=== PATIENT | female | born 1960 | race Hispanic/Latino ===

== ENCOUNTER 2018-10-16 18:10 | Emergency (ER) | payer OTHER, SELFPAY ==
[2018-10-16 18:12] VITALS: BP 126/78; PULSE 84; RESP 16; TEMP 36.3; O2SAT 99; BMI 29.2
--- NOTE | 2018-10-16 18:51 | RAD_ITS ---
STUDY: X-RAY - RIGHT WRIST REASON FOR EXAM: Female, 58 years old. Fell and injured right wrist TECHNIQUE: 3 view(s) of the wrist were obtained. COMPARISON: None. FINDINGS: Normal visualized distal radius and ulna. Normal radiocarpal articulation. Normal distal radioulnar articulation. Normal carpal bones. Normal carpal articulations. Normal carpometacarpal articulation of the thumb. Normal second through fifth carpometacarpal articulations. Normal visualized metacarpal bones. The soft tissue structures are unremarkable. RAD/Wrist min 3 Views IMPRESSION: Normal x-ray examination of the wrist. Electronically Signed: David Espinoza MD at 19:40 EDT , Service support ,
--- NOTE | 2018-10-16 18:54 | ED.DCSUM_ITS ---
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 She is presenting with wrist pain on the dorsum ulnar side of the right wrist she is right-handed. Physical Examination: She has full range of motion of the wrist, she has tenderness over the extensor wrist tendons on the ulnar side. No real bony tenderness. Emergency Department Course and Treatment: X-rays unremarkable patient will be discharged with a cockup splint to follow-up with employee health Disposition: Discharge stable condition Impression: Wrist tendinitis right This note was generated with TrumpIT dictation software. It may contain incorrect words, spelling, and punctuation that were not noted in review of the chart prior to signing
--- NOTE | 2018-10-16 21:42 | ED.DEP ---
ED Disposition - Plan for ED Patient: Disposition: Home or Assisted Living Instructions: ED Sprain Wrist Prescriptions: Naproxen [Naprosyn] 500 mg PO BID #20 tab Referrals: [facility] [GROUP OF PHYSICIANS] - 3-5 Days
--- NOTE | 2018-10-16 22:24 | ED.VISSUMM ---
- ER Visit Summary Date of Service: 10/16/18 Chief Complaint: [] History of Present Illness: The patient is a 58 F [] Physical Examination: [] Test Results: [] Emergency Department Course and Treatment: [] Treatment Plan: [] Disposition: [] Impression: [] This note was generated with Kofikafe dictation software. It may contain incorrect words, spelling, and punctuation that were not noted in review of the chart prior to signing ED Disposition - Plan for ED Patient: Disposition: Home or Assisted Living Instructions: ED Sprain Wrist Prescriptions: Meloxicam 15 mg PO BID #30 tab Naproxen [Naprosyn] 500 mg PO BID #20 tab Referrals: [facility] [GROUP OF PHYSICIANS] - 3-5 Days
[2018-10-16 22:26] VITALS: RESP 18; O2SAT 97
== END 2018-10-16 22:27 | disposition home or self-care (01) ==
PROVIDERS: Emergency Provider Emergency Medicine
DX: M77.9 Enthesopathy, unspecified (principal)
CPT/HCPCS: 73110; 99283

== ENCOUNTER 2018-12-09 18:30 | Outpatient (RCR) | payer OTHER, SELFPAY ==
[2018-11-06 17:15] VITALS: BMI 28.3
[2018-11-20 17:45] VITALS: BMI 28.3
--- NOTE | 2018-11-26 08:39 | HP.OTEVAL_ITS ---
Patient's Visit Information PETRA YOUNG is a 58 year old F, referred to Occupational Therapy by PAULO Ward, with a diagnosis of right wrist ruth ann. Date of Evaluation: 11/24/18 Occupational Therapist: Bonita Long, JANETTE/Loreta, CHT - Subjective Subjective: This 58 year old female was seen for initial OT eval following dx of a right wrist. Pt states the injury occured on October 16, 2018. 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 pt states she has been using the wrist brace and her pain is better. pt states she has not returned to her job at this time- is currently on light duty. 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 with IADLS and ADLS. Pt would benefit from skilled OT services 2-3 for 4 weeks to return pt to PLOF. Today pt was ed. through communication on decrease use of brace at home, ice and ROM. Therapist will cont with PRE on next visit, and work ergo. Rehabilitation Potential: Good - Anticipated Interventions Anticipated Interventions: A/AAROM/PROM, Strengthening, Triggerpoint Release, Modalities, Orthoses, Joint Protection/Energy Conservation, Ergonomic Education - Visit Plan Frequency: 2-3x /Week Duration: 4 Weeks TEXT: Thank you for the opportunity to evaluate your patient. For Medicare and Medicare HMO plans, please review the plan of care and approve it. It will need to be FAXED BACK to us at [phone] for Medicare purposes. Please let me know if there are questions or concerns regarding this plan of care. Physician Signature: Date:
--- NOTE | 2019-02-16 11:21 | HP.OT.NRP ---
HP - Discharge Summary - Patient Information PETRA YOUNG was seen in my office for initial evaluation on 11/24/18. The following Plan of Care was established for this patient: Initial Frequency: 2-3x /Week Initial Duration: 4 Weeks Plan: pt to bring in buckets from work to simulate work tasks. - Anticipated Interventions Anticipated Interventions: A/AAROM/PROM, Strengthening, Triggerpoint Release, Modalities, Orthoses, Joint Protection/Energy Conservation, Ergonomic Education This patient was last seen in our office 12/09/18. Pertinent comments regarding their Occupational therapy will appear below: pt was seen for 6/12 visits- she made great progress and completed work simulation tasks as well without pain. pt returned to and was released to full duty. pt d/c at this time. At this point I will be discontinuing this patient from occupational therapy. I would be happy to see this patient again in the future if found appropriate by the physician. Thank you! Bonita Long, OTR/L, CHT
== END 2018-12-09 19:00 | disposition home or self-care (01) ==
LOC: OT 18:30
PROVIDERS: Family Provider Physician Assistant; PCP Physician Assistant; Referring Provider Physician Assistant; Visit Provider Physician Assistant
DX: S63.501D Unspecified sprain of right wrist, subsequent encounter (principal)
CPT/HCPCS: 97035; 97110; 97166; 97530

== ENCOUNTER 2023-12-23 19:19 | Emergency (ER) | payer SELFPAY ==
[2023-12-23 19:23] VITALS: BP 132/78; PULSE 107; RESP 18; TEMP 36.6; O2SAT 94; BMI 28.0
--- NOTE | 2023-12-23 20:03 | CT_ITS ---
STUDY: CT ABDOMEN AND PELVIS WITH CONTRAST REASON FOR EXAM: Female, 63 years old. abdominal pain RADIATION DOSAGE (If Supplied By Facility): CTDIvol = ( 11.89 ) mGy, DLP = ( 712.47 ) mGycm TECHNIQUE: Transaxial images were obtained from the dome of the diaphragm to the symphysis pubis without oral contrast. IV 100mL Isovue-370 was administered. Sagittal and coronal images were reconstructed. Individualized dose optimization techniques were used for this CT. COMPARISON: None. FINDINGS: The visualized lung bases are unremarkable. The visualized portions of the heart are within normal limits. Normal liver. Normal gallbladder and extrahepatic biliary system. Normal spleen. Normal pancreas. Normal bilateral adrenal glands. Normal right kidney. Normal left kidney. Normal visualized stomach. Normal small intestine. Normal colon. The appendix is visualized and appears normal. Normal abdominal aorta. Normal inferior vena cava. Normal retroperitoneum. Normal urinary bladder. Normal abdominal wall. Normal osseous structures. CT/Abdomen/Pelvis W IV Cont ONLY IMPRESSION: Normal enhanced CT of the abdomen and pelvis. Electronically Signed: Obi Chavez MD at 22:25 EDT ,
--- NOTE | 2023-12-23 20:06 | EDS_ITS ---
HPI History of Present Illness Chief Complaint: Abd Pain Informant: patient and family Narrative Narrative: 63-year-old female presenting to the emergency room with upper abdominal pain and vomiting. Patient states that this afternoon around 1430 hrs. she ate some rice and beans and pork and a small amount of coconut. She mentions the coconut because several months ago while visiting the [facility] she had an episode of pain and nausea vomiting similar to this that ended up resolving which she attributed to the coconut. She states that today she went to urgent care because of the pain and vomiting and was sent to emergency. She states she had a subjective fever. Patient currently takes meloxicam. She denies any prior abdominal surgeries. No diarrhea. No rashes. She notes that the pain radiates to her back PFSH PFSH Home Medications ?Medication ?Instructions ?Recorded ?Last Taken ?Type omeprazole 20 mg capsule,delayed 20 mg PO BID #28 CAPSULES 12/23/23 Unknown Rx release ondansetron 4 mg disintegrating 4 mg PO Q6H PRN PRN Nausea #15 tabs 12/23/23 Unknown Rx tablet Allergy/AdvReac Type Severity Reaction Status Date / Time ibuprofen Allergy Other Verified 12/23/23 19:23 Social History Smoking Status: Never smoker alcohol intake: never ROS ROS ED Constitutional Constitutional ED: Reports fever(s) and subjective; Denies chills or weight loss Eyes Eyes: Denies change in vision or diplopia ENT ENT ED: Denies ear pain, rhinorrhea or sore throat Cardiovascular Cardiovascular: Denies chest pain, orthopnea, palpitations or racing heartbeat Respiratory/Chest Respiratory/Chest: Denies cough, dyspnea or orthopnea Gastrointestinal Gastrointestinal: Reports abdominal pain, nausea and vomiting; Denies diarrhea Genitourinary Genitourinary ED: Denies dysuria, hematuria or urinary frequency Musculoskeletal Musculoskeletal: Reports back pain; Denies arthralgias or myalgias Integumentary Denies abscess or rash Neurologic Neurologic: Denies headache(s) or weakness Psychiatric Psychiatric: Denies anxiety, depression, suicidal ideation or suicidal thoughts Endocrine Endocrinology: Denies polydipsia, polyphagia or polyuria Allergic/Immunologic Allergic/Immunologic ED: Denies mouth swelling, tongue swelling or urticaria EXAM Physical Exam Const Vital Signs: 12/23/23 19:23 12/23/23 21:21 12/23/23 23:00 Temperature 97.9 F Temperature Source Temporal Pulse Rate 107 H 77 72 Respiratory Rate 18 18 16 Blood Pressure 132/78 H 136/77 H 134/80 H Blood Pressure Mean 96 96 98 Pulse Ox 94 98 97 Oxygen Delivery Method Room Air Room Air Room Air 12/24/23 00:05 Temperature 98 F Temperature Source Pulse Rate 68 Respiratory Rate 16 Blood Pressure 144/79 H Blood Pressure Mean 100 Pulse Ox 99 Oxygen Delivery Method Positive well nourished and well developed General Appearance ED: well developed HEENT Reports normocephalic, head/scalp atraumatic and moist mucous membranes Eyes PERRL and EOMs intact bilaterally Neck no lymphadenopathy, supple and no JVD Resp normal respiratory effort and clear to auscultation bilaterally Cardio regular rate, regular rhythm and no murmurs Rate: tachycardic GI Inspection: Negative for abdominal distention Auscultation: normoactive bowel sounds Palpation: soft, tender epigastric and LUQ and guarding; Negative for rebound tenderness present Back/Spine no CVA tenderness and normal ROM Extremity normal to inspection General Extremety ED: Negative for edema General Extremity: Negative for edema Neuro oriented x3 and CN's II-XII intact bilaterally Sensorium / Orientation: alert Motor Exam: strength 5/5 throughout Psych mental status grossly normal Mood & Affect: Negative for depressed or tearful Skin no rashes or lesions noted and no wounds MDM MDM MDM Narrative Medical decision making narrative: I utilized primary care sales representative via an iPad. White count 3.3 hemoglobin 12.7. AST and ALT and alk phos are elevated. Normal bilirubin. Normal lipase. Urinalysis essentially negative. Patient received IV fluids Dilaudid and Zofran. Repeat examination finds the patient to be improved still with some slight nausea and she received oral ODT. CT of the abdomen pelvis was obtained. That was essentially negative and gallbladder ultrasound was also negative. I spoke with the patient and her [id number]. Patient now tells me that she does have a history of having some elevated liver enzymes and has not been determined why. She states that she was told when she was younger that she had hepatitis a 1 point. She does not drink any alcohol. No black or bloody stools. I will write for the patient have some omeprazole and some Zofran. Would have her avoid fatty foods which she states she does not eat. I like to have her follow-up with her primary care doctor. She can discuss a possible HIDA scan. No have a clear etiology for the patient's symptoms but I gave her explicit return instructions such as but not limited to fever worsening pain vomiting black or bloody stools. History & Record Review Discussion w/independent historian: Patient and Family Lab Data Attestation: I reviewed the patient's lab results. Labs: Laboratory Results - last 24 hr 12/23/23 12/23/23 20:20 23:10 WBC 3.3 L RBC 4.21 Hgb 12.7 Hct 39.5 MCV 93.8 MCH 30.2 MCHC 32.2 RDW Std Deviation 46.5 H RDW Coeff of Earline 13.7 Plt Count TNP MPV 12.2 H Immature Gran % (Auto) 0.600 Neut % (Auto) 89.3 H Lymph % (Auto) 3.7 L [place] % (Auto) 4.6 Eos % (Auto) 1.2 Baso % (Auto) 0.6 Absolute Neuts (auto) 2.9 Absolute Lymphs (auto) 0.12 L Nucleated RBC % 0 Platelet Estimate ADEQUATE Sodium 137 Potassium 4.2 Chloride 107 Carbon Dioxide 27.0 Anion Gap 3 L BUN 16 Creatinine 0.92 Estim Creat Clear Calc 54.14 Est GFR (MDRD) Af Amer 80 Est GFR (MDRD) Non-Af 66 BUN/Creatinine Ratio 17.4 Glucose 116 H Calcium 9.0 Total Bilirubin 0.70 Direct Bilirubin 0.16 AST 448 H ALT 266 H Alkaline Phosphatase 204 H Total Protein 8.0 Albumin 3.7 Globulin 4.3 H Lipase 34 Urine Color Yellow Urine Clarity Clear Urine pH 8.0 Ur Specific [place] 1.015 Urine Protein Negative Urine Glucose (UA) Normal Urine Ketones 5 H Urine Occult Blood Negative Urine Nitrite Negative Urine Bilirubin Negative Urine Urobilinogen Normal Ur Leukocyte Esterase Negative Radiography Diagnostic Testing: Clinical Impression(s) from Imaging Studies Abdomen/Pelvis CT 12/23/23 20:03 IMPRESSION: Normal enhanced CT of the abdomen and pelvis. Electronically Signed: Obi Chavez MD at 22:25 EDT , Gallbladder Ultrasound 12/23/23 21:35 IMPRESSION: Normal right upper quadrant ultrasound examination. Electronically Signed: Obi Chavez MD at 23:28 EDT , Discharge Plan Triage Chief Complaint: Abd Pain ED Provider: Dariel Maki Dx/Rx/DC Orders Clinical Impression: Abdominal pain, Vomiting, Elevated liver enzymes Instructions: Abdominal Pain, HIDA Scan Prescriptions: New omeprazole 20 mg capsule,delayed release(DR/EC) 20 mg PO BID Qty: 28 0RF ondansetron 4 mg tablet,disintegrating 4 mg PO Q6H PRN PRN (Reason: Nausea) Qty: 15 0RF Primary Care Provider: Care Physician,No Primary Referrals: Care Physician,No Primary [Primary Care Provider] - Tino Byrne, PA [Non-Staff] - As soon as possible Print Language: Mosotho Disposition Disposition: Home, Self Care Discharge Date/Time: 12/24/23 00:05
[2023-12-23 20:29] LABS: Absolute Lymphocyte Count 0.12 X10^3/uL (0.83-4.51); Absolute Neutrophil Count 2.9 X10^3/uL (2.0-7.7); Basophil# 0.02 X10^3/uL; Basophil% 0.6 % (0-1); Eosinophil# 0.04 X10^3/uL; Eosinophils% 1.2 % (0-5); Hematocrit 39.5 % (37-47); Hemoglobin 12.7 g/dL (12.0-15.0); Lymphocyte # 0.12 X10^3/ul (0.83-4.51); Lymphocyte % 3.7 % (19-41); Mean Corp Hgb Conc 32.2 g/dL (32-36); Mean Corpuscular Hgb 30.2 pg (27.0-32.0); Mean Corpuscular Volume 93.8 fL (81-99); Mean Platelet Vol. 12.2 fl (6.2-12.0); Monocyte# 0.15 X10^3/uL; Monocyte% 4.6 % (0-10); NRBC Flagged by Analyzer 0 % (0-5); Neutrophil # 2.91 X10^3/uL (2.7-7.7); Neutrophil % 89.3 % (47-70); POSITIVE COUNT YES; POSITIVE DIFFERENTIAL YES; RBC Distribution Width CV 13.7 % (11.6-14.6); RBC Distribution Width SD 46.5 fl (35.1-43.9); Red Blood Count 4.21 M/mm3 (4.2-5.4); White Blood Count 3.3 K/mm3 (4.4-11.0)
[2023-12-23] MEDS: 0.9% Normal Saline (1000mL) 1,000 ML 999 ML IV (20:36)
[2023-12-23] MEDS: Ondansetron 4 MG/2 ML Vial IV (20:36)
[2023-12-23] MEDS: HYDROmorphone 1 MG/ML Syringe IV (20:36)
[2023-12-23 21:04] LABS: Platelet Estimate ADEQUATE (ADEQ)
[2023-12-23 21:20] LABS: AST(SGOT) 448 U/L (15-37); Alanine Aminotransfer ALT/SGPT 266 U/L (13-56); Albumin, Serum 3.7 g/dL (3.2-5.0); Alkaline Phosphatase 204 U/L (45-117); Anion Gap 3 (5-15); BUN 16 mg/dL (7-18); BUN/Creat Ratio 17.4 RATIO (10-20); Bilirubin, Direct 0.16 mg/dL (0.00-0.30); Chloride 107 mmol/L (98-107); Creatinine, Serum 0.92 mg/dL (0.55-1.02); EST Glomerular Filtration Rate 66 mL/min (>60); Est Glom Filt Rate - Afr Amer 80 mL/min (>60); Estimated Creatinine Clearance 54.14 ml/min; Globulin 4.3 g/dL (2.2-4.2); Glucose 116 mg/dL (74-106); Lipase 34 U/L (13-75); Potassium 4.2 mmol/L (3.5-5.1); Sodium Level 137 mmol/L (136-145)
[2023-12-23 21:21] VITALS: BP 136/77; PULSE 77; RESP 18; O2SAT 98
--- NOTE | 2023-12-23 21:35 | US_ITS ---
STUDY: ABDOMINAL ULTRASOUND - RIGHT UPPER QUADRANT REASON FOR VISIT: Female, 63 years old pain TECHNIQUE: Ultrasound evaluation of the right upper quadrant was performed with real-time and static corona-scale imaging. TECHNICAL QUALITY: Adequate. COMPARISON: None. FINDINGS: Liver: The liver measures 13.0 cm. There is normal echogenicity of the liver. The bile ducts are within normal limits. There is hepatic color flow. The direction of portal flow is hepatopetal. There is no demonstrated mass lesion. Gallbladder: Normal distended gallbladder. The gallbladder wall measures 2 mm. There is a negative sonographic Gamez''s sign. There is no pericholecystic fluid. There are no gallstones. Common Bile Duct (C.B.D.): The common bile duct measures 3 mm. Pancreas: Normal size of the head, body and tail of the pancreas. There is normal echogenicity of the pancreas. There is no demonstrated pancreatic mass or cyst. Right Kidney: Normal size of the right kidney. The right kidney measures 9.7 cm. Normal renal cortex. The right cortex measures 1.2 cm. There is no demonstrated renal mass or cyst. There is no right hydronephrosis. US/Gallbladder IMPRESSION: Normal right upper quadrant ultrasound examination. Electronically Signed: Obi Chavez MD at 23:28 EDT ,
[2023-12-23 23:00] VITALS: BP 134/80; PULSE 72; RESP 16; O2SAT 97
[2023-12-23 23:16] LABS: Bacteria 0 SEEN /hpf (None Seen); Mucous, Urine 0 SEEN /hpf (<or=2+); Red Blood Cells-Urine 0 SEEN /hpf (0-5); Squamous Epithelial Cells - UA 0 SEEN /hpf (5-10); White Blood Cells 0 SEEN /hpf (0-5)
[2023-12-23 23:51] LABS: Color, Urine Yellow (Yellow); Glucose, Dipstick Normal (Normal); Ketone-Dipstick 5 mg/dl (Negative); Leukocyte Esterase-Dipstick Negative /ul (Negative); Nitrite-Dipstick Negative (Negative); Occult Blood-Urine Negative /ul (Negative); Protein-Dipstick Negative (Negative); Specific Gravity, Urine 1.015 (1.002-1.030); Urine Bilirubin Dipstick Negative (Negative); Urine Clarity Clear (Clear); Urine Urobilinogen Normal (Normal)
[2023-12-24] MEDS: Ondansetron ODT 4 MG Tablet PO (00:01)
[2023-12-24 00:05] VITALS: BP 144/79; PULSE 68; RESP 16; TEMP 36.6; O2SAT 99
== END 2023-12-24 00:05 | disposition home or self-care (01) ==
PROVIDERS: Emergency Provider Emergency Medicine; Visit Provider Emergency Medicine
DX: R10.9 Unspecified abdominal pain (principal); R11.2 Nausea with vomiting, unspecified; R74.8 Abnormal levels of other serum enzymes; M54.9 Dorsalgia, unspecified
CPT/HCPCS: 74177; 76705; 80048; 80076; 81001; 83690; 85025; 96361; 96374; 96375; 99283; J7030; Q9967; A4216; J2405

== ENCOUNTER 2024-05-14 23:26 | Emergency (ER) | payer SELFPAY ==
[2024-05-14 23:27] VITALS: BP 161/95; PULSE 71; RESP 18; TEMP 36.7; O2SAT 99; BMI 25.6
--- NOTE | 2024-05-14 23:40 | EX.ED.DYSGE1 ---
HPI History of Present Illness Chief Complaint: Abd Pain Informant: patient and family Narrative Narrative: 63-year-old female presenting to the emergency room with a chief complaint of upper abdominal pain. Patient states that around 1530 hrs. today she ate some rice and beans developed pain in the epigastric left upper quadrant of her abdomen. She notes some associated nausea and vomiting. Patient was seen in the emergency room back in December had a gallbladder ultrasound that was normal. We discussed HIDA scan but she states that it was not necessary. She did have some elevation of her liver enzymes which she states has no current clear etiology for. This had been present in the past per her. No reported fevers. No diarrhea. No black stools. Pain does not radiate. She does not drink alcohol. PFSH PFSH Home Medications ?Medication ?Instructions ?Recorded ?Last Taken ?Type omeprazole 20 mg capsule,delayed 20 mg PO BID #28 CAPSULES 12/23/23 Unknown Rx release ondansetron 4 mg disintegrating 4 mg PO Q6H PRN PRN Nausea #15 tabs 12/23/23 Unknown Rx tablet omeprazole 20 mg capsule,delayed 20 mg PO BID #30 CAPSULES 05/15/24 Unknown Rx release Allergy/AdvReac Type Severity Reaction Status Date / Time ibuprofen Allergy Other Verified 05/14/24 23:26 Social History Smoking Status: Never smoker alcohol intake: never ROS ROS ED Constitutional Constitutional ED: Denies chills, fever(s) or weight loss Eyes Eyes: Denies change in vision or diplopia ENT ENT ED: Denies ear pain, rhinorrhea or sore throat Cardiovascular Cardiovascular: Denies chest pain, orthopnea, palpitations or racing heartbeat Respiratory/Chest Respiratory/Chest: Denies cough, dyspnea or orthopnea Gastrointestinal Gastrointestinal: Reports abdominal pain, nausea and vomiting; Denies constipation or diarrhea Genitourinary Genitourinary ED: Denies dysuria, hematuria or urinary frequency Musculoskeletal Musculoskeletal: Denies arthralgias, back pain or myalgias Integumentary Denies abscess or rash Neurologic Neurologic: Denies headache(s) or weakness Psychiatric Psychiatric: Denies anxiety, depression, suicidal ideation or suicidal thoughts Endocrine Endocrinology: Denies polydipsia, polyphagia or polyuria Allergic/Immunologic Allergic/Immunologic ED: Denies mouth swelling, tongue swelling or urticaria EXAM Physical Exam Const Vital Signs: 05/14/24 23:27 Temperature 98.1 F Temperature Source Oral Pulse Rate 71 Respiratory Rate 18 Blood Pressure 161/95 H Blood Pressure Mean 117 Pulse Ox 99 Oxygen Delivery Method Room Air Positive well nourished and well developed General Appearance ED: well developed HEENT Reports normocephalic, head/scalp atraumatic and moist mucous membranes Eyes PERRL and EOMs intact bilaterally Neck no lymphadenopathy, supple and no JVD Resp normal respiratory effort and clear to auscultation bilaterally Cardio regular rate, regular rhythm and no murmurs GI Inspection: Negative for abdominal distention Auscultation: normoactive bowel sounds Palpation: soft and tender epigastric and LLQ; Negative for guarding or rebound tenderness present Back/Spine no CVA tenderness and normal ROM Extremity normal to inspection General Extremety ED: Negative for edema General Extremity: Negative for edema Neuro oriented x3 and CN's II-XII intact bilaterally Sensorium / Orientation: alert Motor Exam: strength 5/5 throughout Psych mental status grossly normal Mood & Affect: Negative for depressed or tearful Skin no rashes or lesions noted and no wounds MDM MDM MDM Narrative Medical decision making narrative: Differential diagnosis includes but not limited to gastritis esophagitis pancreatitis biliary disease bowel obstruction gastroenteritis Basic blood work showed a normal white blood cell count hemoglobin and platelet count. Liver lipase showed a slight elevation of her AST alkaline phosphatase of 144 lipase is 27 BMP within normal limits except for glucose of 130. Patient received Zofran Bentyl and a GI cocktail. She feels improved and now states that she just feels more gassy. The patient most likely has some gastritis. She tells me that she has a GI doctor that did a liver biopsy in the past she that she will follow-up with she can also follow-up with primary care. I can write for some omeprazole. She may benefit from EGD if this is something she can discuss as an outpatient. History & Record Review Discussion w/independent historian: Patient and Family Lab Data Attestation: I reviewed the patient's lab results. Labs: Laboratory Results - last 24 hr 05/14/24 05/14/24 05/15/24 23:38 23:38 00:43 WBC Cancelled 7.1 Corrected WBC Cancelled RBC Cancelled 4.64 Hgb Cancelled 14.2 Hct Cancelled 43.8 MCV Cancelled 94.4 MCH Cancelled 30.6 MCHC Cancelled 32.4 RDW Std Deviation Cancelled 45.1 H RDW Coeff of Earline Cancelled 13.1 Plt Count Cancelled 184 MPV Cancelled 12.7 H Immature Gran % (Auto) Cancelled 0.100 Neut % (Auto) Cancelled 80.5 H Lymph % (Auto) Cancelled 14.6 L [place] % (Auto) Cancelled 2.7 Eos % (Auto) Cancelled 1.3 Baso % (Auto) Cancelled 0.8 Absolute Neuts (auto) Cancelled 5.7 Absolute Lymphs (auto) Cancelled 1.03 Total Counted Cancelled Neutrophils % (Manual) Cancelled Band Neutrophils % Cancelled Lymphocytes % (Manual) Cancelled Monocytes % (Manual) Cancelled Eosinophils % (Manual) Cancelled Basophils % (Manual) Cancelled Metamyelocytes % Cancelled Myelocytes % Cancelled Promyelocytes % Cancelled Blast Cells % Cancelled Plasma Cell % (Manual) Cancelled Other Cells % Cancelled Nucleated RBC % Cancelled 0 Nucleated RBCs/100 WBC Cancelled Differential Comment Cancelled Diff Path Review Cancelled Hypersegmented Neuts Cancelled Atypical Lymphocytes Cancelled Reactive Lymphocytes Cancelled Smudge Cells Cancelled Toxic Granulation Cancelled Toxic Vacuolation Cancelled Dohle Bodies Cancelled Olive Rods Cancelled Platelet Estimate Cancelled Plt Morphology Comment Cancelled RBC Morphology Cancelled Cancelled Polychromasia Cancelled Hypochromasia Cancelled Basophilic Stippling Cancelled Anisocytosis Cancelled Microcytosis Cancelled Macrocytosis Cancelled Spherocytes Cancelled Sickle Cells Cancelled Target Cells Cancelled Tear Drop Cells Cancelled Ovalocytes Cancelled Stomatocytes Cancelled Strong[place] Bodies Cancelled Cartwright Cells Cancelled Bite Cells Cancelled Crenated Cell Cancelled Acanthocytes (Spur) Cancelled Rouleaux Cancelled Schistocytes Cancelled Sodium 138 Potassium 4.5 Chloride 107 Carbon Dioxide 23.0 Anion Gap 8 BUN 13 Creatinine 0.84 Estim Creat Clear Calc 56.74 Est GFR (MDRD) Af Amer 89 Est GFR (MDRD) Non-Af 74 BUN/Creatinine Ratio 15.6 Glucose 130 H Calcium 10.0 Total Bilirubin 0.50 Direct Bilirubin 0.07 AST 43 H ALT 37 Alkaline Phosphatase 144 H Total Protein 9.6 H Albumin 4.3 Globulin 5.3 H Lipase 27 Discharge Plan Triage Chief Complaint: Abd Pain ED Provider: Dariel Maki Dx/Rx/DC Orders Clinical Impression: Gastritis, Abdominal pain Instructions: ED Gastritis (Adult) Prescriptions: New omeprazole 20 mg capsule,delayed release(DR/EC) 20 mg PO BID Qty: 30 0RF No Action omeprazole 20 mg capsule,delayed release(DR/EC) 20 mg PO BID Qty: 28 0RF ondansetron 4 mg tablet,disintegrating 4 mg PO Q6H PRN PRN (Reason: Nausea) Qty: 15 0RF Primary Care Provider: Care Physician,No Primary Referrals: Care Physician,No Primary [Primary Care Provider] - Activity Restrictions/Additional Instructions: Please follow-up with your primary care doctor Print Language: Amharic Disposition Disposition: Home, Self Care
[2024-05-14] MEDS: Lidocaine 2% Viscous15 ML UDC 15 ML PO (23:46)
[2024-05-14] MEDS: Ondansetron 4 MG/2 ML Vial IV (23:46)
[2024-05-14] MEDS: Mag Hydrox/Al Hydrox/Simeth 30 ML UDC PO (23:46)
[2024-05-14] MEDS: Dicyclomine 20 MG/2 ML Vial IM (23:51)
[2024-05-15 00:25] LABS: AST(SGOT) 43 U/L (15-37); Alanine Aminotransfer ALT/SGPT 37 U/L (13-56); Albumin, Serum 4.3 g/dL (3.2-5.0); Alkaline Phosphatase 144 U/L (45-117); Anion Gap 8 (5-15); BUN 13 mg/dL (7-18); BUN/Creat Ratio 15.6 RATIO (10-20); Bilirubin, Direct 0.07 mg/dL (0.00-0.30); Chloride 107 mmol/L (98-107); Creatinine, Serum 0.84 mg/dL (0.55-1.02); EST Glomerular Filtration Rate 74 mL/min (>60); Est Glom Filt Rate - Afr Amer 89 mL/min (>60); Estimated Creatinine Clearance 56.74 ml/min; Globulin 5.3 g/dL (2.2-4.2); Glucose 130 mg/dL (74-106); Lipase 27 U/L (13-75); Potassium 4.5 mmol/L (3.5-5.1); Protein, Total 9.6 g/dL (6.4-8.2); Sodium Level 138 mmol/L (136-145)
[2024-05-15 01:03] LABS: Absolute Lymphocyte Count 1.03 X10^3/uL (0.83-4.51); Absolute Neutrophil Count 5.7 X10^3/uL (2.0-7.7); Basophil# 0.06 X10^3/uL; Basophil% 0.8 % (0-1); Eosinophil# 0.09 X10^3/uL; Eosinophils% 1.3 % (0-5); Hematocrit 43.8 % (37-47); Hemoglobin 14.2 g/dL (12.0-15.0); Lymphocyte # 1.03 X10^3/ul (0.83-4.51); Lymphocyte % 14.6 % (19-41); Mean Corp Hgb Conc 32.4 g/dL (32-36); Mean Corpuscular Hgb 30.6 pg (27.0-32.0); Mean Corpuscular Volume 94.4 fL (81-99); Mean Platelet Vol. 12.7 fl (6.2-12.0); Monocyte# 0.19 X10^3/uL; Monocyte% 2.7 % (0-10); NRBC Flagged by Analyzer 0 % (0-5); Neutrophil # 5.69 X10^3/uL (2.7-7.7); Neutrophil % 80.5 % (47-70); Platelet Count 184 K/mm3 (150-450); RBC Distribution Width CV 13.1 % (11.6-14.6); RBC Distribution Width SD 45.1 fl (35.1-43.9); Red Blood Count 4.64 M/mm3 (4.2-5.4); White Blood Count 7.1 K/mm3 (4.4-11.0)
[2024-05-15 01:26] VITALS: BP 136/81; PULSE 83; RESP 16; O2SAT 93
[2024-05-15 01:32] VITALS: BP 136/81; PULSE 83; RESP 16; TEMP 36.7; O2SAT 93
[2024-05-15 01:36] VITALS: BP 154/81; PULSE 68; RESP 16; O2SAT 98
[2024-05-15] MEDS: Famotidine 20 MG Tablet 40 MG PO (01:40)
[2024-05-15] MEDS: Ketorolac 30 MG/ML Syringe IV (01:41)
== END 2024-05-15 02:26 | disposition home or self-care (01) ==
PROVIDERS: Emergency Provider Emergency Medicine; Visit Provider Emergency Medicine
DX: K29.70 Gastritis, unspecified, without bleeding (principal); R74.8 Abnormal levels of other serum enzymes; Z79.899 Other long term (current) drug therapy
CPT/HCPCS: 80048; 80076; 83690; 85025; 96372; 96374; 96375; 99284; A4216; J2405